=== PATIENT | female | born 1995 | race Caucasian/White ===

== ENCOUNTER 2020-06-16 17:03 | Observation (INO) | payer OTHER, SELFPAY ==
[2020-06-16 18:15] VITALS: BMI 28.3
[2020-06-16 18:28] VITALS: BP 104/75; PULSE 87
[2020-06-16 18:31] VITALS: BP 99/73; PULSE 86
[2020-06-16 18:45] VITALS: BP 125/80; PULSE 81
[2020-06-16 18:50] LABS: Add Urine Microscopic? YES; Amorphous Sediment Urine Few; Appearance Urine Cloudy (Clear); Bacteria Urine Trace /hpf; Bilirubin Urine Negative (Negative); Blood Urine 3+ (Negative); Color Urine Yellow (Yellow); Glucose Urine UA Negative (Negative); Ketones Urine Negative (Negative); Leukocyte Esterase Ur Negative LEU/UL (NEGATIVE); Mucus Urine Rare /lpf; Nitrate Urine Negative (Negative); Protein Urine 1+ mg/dL (Negative); RBC Urine >75 /hpf (0-2); Specific Grav Ur 1.016 (1.001-1.035); Squamous Epithelial Cell Urine Moderate /hpf (Few); Urobilinogen Urine Negative mg/dL (<2.0)
[2020-06-16 19:51] LABS: Fetal Fibronectin Negative
[2020-06-16] MEDS: TERBUTALINE SULFATE 1 MG/ML VIAL 0.25 MG SUB-Q (20:18)
--- NOTE | 2020-06-22 08:20 | P.PNOB_ITS ---
OB - Triage/Final Diagnosis Visit Information Reason for evaluation: decreased movement and other (cramping) Evaluation Laboratory results: Laboratory Tests 06/16/20 06/16/20 18:27 19:20 Urine Color Yellow Urine Appearance Cloudy H Urine pH 7.0 Ur Specific [place] 1.016 Urine Protein 1+ H Urine Glucose (UA) Negative Urine Ketones Negative Ur Blood (Man) 3+ H Urine Nitrate Negative Urine Bilirubin Negative Urine Urobilinogen Negative Ur Leukocyte Esterase Negative Urine RBC >75 H Urine WBC 4-6 H Ur Squamous Epith Cells Moderate H Amorphous Sediment Few H Urine Bacteria Trace Hyaline Casts 1-2 Urine Mucus Rare Fibronectin Negative
== END 2020-06-16 21:40 | disposition home or self-care (01) ==
PROVIDERS: Admitting Provider Obstetrics & Gynecology Gynecology; Visit Provider Obstetrics & Gynecology Gynecology
DX: O36.8190 Decreased fetal movements, unspecified trimester, not applicable or unspecified (principal); O26.899 Other specified pregnancy related conditions, unspecified trimester; R10.9 Unspecified abdominal pain; Z3A.00 Weeks of gestation of pregnancy not specified
CPT/HCPCS: 81001; 82731; 87086; 96372; G0378; G0379; J3105